=== PATIENT | female | born 1985 | race Hispanic/Latino ===

== ENCOUNTER → 2016-10-05 | Day surgery (SDC) | payer OTHER ==
[~2016-10-05] VITALS: Ht 152.4 cm; Wt 81.6 kg
[~2016-10-05] MED LIST: IBUPROFEN800 M1 PO
--- NOTE | 2016-10-12 12:13 | Operative Report ---
Operative/Inv Procedure Report Surgery Date: 10/05/16 Name of Procedure: Laparoscopic tubal sterilization Pre-Operative Diagnosis: Multiparity Post-Operative Diagnosis: Same Estimated Blood Loss: less than 50ml Surgeon/Quilt Sewer: ALEX DUMONT MD Anesthesia: general endotracheal tube Operative/Procedure Note Note: 0 patient was taken the operating room placed supine position after adequate anesthesia patient placed in dorsolithotomy position the vagina from dorsal fashion bladder was catheterized examination anesthesia performed a single-tooth tenaculum was on the Intralipid cervix gentle downward traction cervix was dilated to allow for the insertion of the Campos cannula on surgeon regowned and gloved at this point the abdomen had been prepped and draped so fashion a stab incision was made at the umbilicus to allow for the entry of Veress needle the abdomen was insufflated possibly 4 L of CO2 to liver edge dullness which point the Veress needle was removed a 10 mm trocar was inserted atraumatically at the umbilicus the sheath remained placed through that sheath laparoscope placed under direct visualization a 5 mm trocar was placed 2 fingerbreadths of symptoms pubis in midline a Kleppinger was placed through the 5 mm port right tube was picked up carried to its fimbriated end approximately 7 cm that tube was Bovie coagulated left tube was picked up carried to its fimbriated end approximately 7 cm that tube was Bovie coagulated pictures were taken maximal CO2 was removed from the abdomen once instruments removed from the abdomen skin was reapproximated using 5-year-old at the incision above the symphysis the fascia was reapproximated 0 and skin closure the umbilicus was with 30 Marcaine was injected underneath the skin patient was returned supine position. All instruments removed from the vagina the Knox was removed the patient was returned supine position. The patient was extubated transferred recovery room awake and alert with counts correct
== END ==
LOC: STS 04:17
DX: Z30.2 Encounter for sterilization (principal)
CPT/HCPCS: 81025; J0131; J0694; J2250